=== PATIENT | male | born 1960 | race Caucasian/White ===

== ENCOUNTER 2016-08-21 11:13 | Emergency (ER) | payer OTHER ==
[~2016-08-21] VITALS: Ht 175.3 cm; Wt 95.3 kg
[~2016-08-21 11:13] MED LIST: HYDR-548 PO; NEXIUM PO; SUMA100T PO
--- NOTE | 2016-08-21 11:15 | NUR ---
PT AMBULATORY TO ER BED 09. C/O SEVERE HAEADACHE THAT STARTED THIS MORNING AT 0530. ALSO C/O NAUSEA AND VOMITING. HYPERTENSIVE [employer]. DENEIS HYPERTENSION. GOWNED AND PLACED ON MONITOR. AWAITING MD CHEN.
--- NOTE | 2016-08-21 11:26 | NUR ---
DR CANNON AT BEDSIDE FOR EVAL.
[2016-08-21] MEDS ORDERED: IV NS 0.9% 500 ML BAG IV ONE (11:30)
[2016-08-21] MEDS ORDERED: ONDANSETRON HCL/PF 4 MG/2 ML VIAL IVP ONE (11:30)
[2016-08-21] MEDS ORDERED: HYDROMORPHONE INJ 2 MG/ML DISP.SYRIN IV ONE (11:30)
[2016-08-21] MEDS ORDERED: IV NS 0.9% 500 ML IV ONE (11:36)
[2016-08-21] MEDS ORDERED: HYDROMORPHONE 1 MG/1 ML DISP.SYRIN ONE ×2 (11:36→12:41)
[2016-08-21] MEDS ORDERED: ONDANSETRON HCL/PF 4 MG/2 ML VIAL ONE (11:36)
[2016-08-21] MEDS ORDERED: IV SET PRIMARY 1 EA INFUS.SET MC ONE (11:36)
--- NOTE | 2016-08-21 11:36 | NUR ---
IV LINE STARTED BLOOD DRAWN AND SENT TO LAB.
[2016-08-21 11:41] LABS: BASOPHILS # (AUTO) 0.3 /CMM (0.0-0.2); BASOPHILS % (AUTO) 2.4 % (0.0-2.0); EOSINOPHILS % (AUTO) 0.4 % (0.0-6.0); HEMATOCRIT 53 % (39-51); HEMOGLOBIN 18.4 g/dL (13.5-17.5); LYMPHOCYTES # (AUTO) 1.3 /CMM (0.8-4.8); MEAN CORPUSCULAR HEMOGLOBIN 30 PG (26.0-33.0); MEAN CORPUSCULAR HGB CONC 35 g/dl (31.0-36.0); MEAN CORPUSCULAR VOLUME 88 fL (80-96); MONOCYTES # (AUTO) 0.4 /CMM (0.1-1.30); MONOCYTES % (AUTO) 3.2 % (2.0-12.0); NEUTROPHILS # (AUTO) 9.5 /CMM (1.8-8.9); PLATELET COUNT (AUTO) 330 /CMM (150-450); RDW COEFFICIENT OF VARIATION 13.2 (11.5-15.0); RED BLOOD CELL COUNT(AUTO) 6.09 MIL/uL (4.5-6.0); WHITE BLOOD COUNT (AUTO) 11.5 K/uL (4.3-11.0)
[2016-08-21 11:56] LABS: CALCIUM, SERUM 9.4 mg/dL (8.5-10.1); CARBON DIOXIDE 30 mmol/L (21-32); CHLORIDE 103 mmol/L (98-107); GFR 77 mL/min (>60); GLUCOSE 139 mg/dL (74-106); POTASSIUM 4.5 mmol/L (3.5-5.1); SODIUM SERUM 140 mmol/L (136-145); UREA NITROGEN, BLOOD 11 mg/dL (7-18)
[2016-08-21 11:58] LABS: INR 1.06 (0.87-1.13)
[2016-08-21 12:04] LABS: TROPONIN I < 0.017 ng/mL (0.00-0.056)
--- NOTE | 2016-08-21 12:04 | NUR ---
PT TO RADIOLOGY FOR HEAD CTA AND HEAD CT SCAN VIA [facility].
[2016-08-21] MEDS ORDERED: CT SWABBABLE VALVE TRANS SET 1 EA INFUS.SET MC ONE (12:29)
[2016-08-21] MEDS ORDERED: IV NS 0.9% 250 ML IV ONE (12:29)
[2016-08-21] MEDS ORDERED: IOHEXOL-350 100 ML VIAL IV ONE (12:29)
[2016-08-21 12:39] LABS: BAND % (MANUAL) 1 % (0.0-5.0); LYMPHOCYTES % (MANUAL) 7 % (16-48); MONOCYTES % (MANUAL) 3 % (0-11.0); NEUTROPHILS % (MANUAL) 89 (42-76); PLATELET ESTIMATE ADEQUATE
[2016-08-21] MEDS ORDERED: IV NS 0.9% 1,000 ML IV PRN (12:57)
[2016-08-21] MEDS ORDERED: HYDROMORPHONE 1 MG/1 ML DISP.SYRIN IV ONE (13:00)
[2016-08-21] MEDS ORDERED: Z GUARD REMEDY 2 OZ OINT TP PRN (13:00)
[2016-08-21] MEDS ORDERED: ACETAMINOPHEN 325 MG TABLET PO PRN (13:00)
[2016-08-21] MEDS ORDERED: MAGNESIUM HYDROXIDE 30 ML UDC PO PRN (13:00)
[2016-08-21] MEDS ORDERED: MAG HYDROX/AL HYDROX/SIMETH 30 ML UDC PO PRN (13:00)
[2016-08-21] MEDS ORDERED: HYDROCODONE/APAP 5/325MG 1 EACH TABLET PO PRN (13:00)
[2016-08-21] MEDS ORDERED: ZOLPIDEM TARTRATE 5 MG TABLET PO PRN (13:00)
[2016-08-21] MEDS ORDERED: ENOXAPARIN SODIUM 40 MG/0.4 ML DISP.SYRIN SQ SCH (13:00)
[2016-08-21] MEDS ORDERED: ONDANSETRON HCL/PF 4 MG/2 ML VIAL IVP PRN (13:00)
[2016-08-21] MEDS ORDERED: hydrALAZINE HCL 25 MG TABLET PO PRN (13:00)
[2016-08-21 13:18] VITALS: BP 160/99
--- NOTE | 2016-08-21 13:18 | NUR ---
Patient discharged to home in stable condition. Written and verbal after care instructions given. Patient verbalizes understanding of instruction.IV removed. Catheter intact and site benign. Pressure and 4x4 applied to site. No bleeding noted.
[2016-08-22] MEDS ORDERED: PANTOPRAZOLE 40 MG TABLET.DR PO SCH (07:30)
== END 2016-08-21 13:19 | disposition home or self-care (01) ==
LOC: ER 11:15
DX: R51 Headache (principal); R79.1 Abnormal coagulation profile; R79.89 Other specified abnormal findings of blood chemistry
CPT/HCPCS: 36415; 70450-TC; 70496-TC; 80048-TC; 84484-TC; 85025-TC; 85730-TC; A4606; J1170; J2405; J7040; J7050; Q9967; Z7610

== ENCOUNTER 2017-09-30 08:18 | Emergency (ER) | payer OTHER ==
[~2017-09-30] VITALS: Ht 170.2 cm; Wt 102.1 kg
[2017-09-30] MEDS ORDERED: METOCLOPRAMIDE HCL 10 MG/2 ML VIAL ONE (08:57)
[2017-09-30] MEDS ORDERED: KETOROLAC TROMETHAMINE 15 MG/ML VIAL ONE (08:57)
[2017-09-30] MEDS ORDERED: diphenhydrAMINE HCL 50 MG/ML VIAL ONE (08:57)
[2017-09-30] MEDS ORDERED: METOCLOPRAMIDE HCL 10 MG/2 ML VIAL IV ONE (09:00)
[2017-09-30] MEDS ORDERED: IV NS 0.9% 1,000 ML BAG IV ONE (09:00)
[2017-09-30] MEDS ORDERED: diphenhydrAMINE HCL 50 MG/ML VIAL IV ONE (09:00)
[2017-09-30] MEDS ORDERED: KETOROLAC TROMETHAMINE INJ 30 MG/ML VIAL IV ONE (09:00)
--- NOTE | 2017-09-30 09:04 | NUR ---
Line started on l AC g 20, pt tolerated well
--- NOTE | 2017-09-30 09:04 | NUR ---
pt medicated as ordered
[2017-09-30] MEDS ORDERED: MORPHINE SULFATE INJ 4 MG/ML DISP.SYRIN ONE (09:24)
[2017-09-30] MEDS ORDERED: LORAZEPAM INJ 2 MG/ML VIAL ONE (09:25)
[2017-09-30] MEDS ORDERED: MORPHINE SULFATE INJ 10 MG/ML DISP.SYRIN IV ONE (09:30)
[2017-09-30] MEDS ORDERED: LORAZEPAM INJ 2 MG/ML VIAL IV ONE (09:30)
--- NOTE | 2017-09-30 09:40 | NUR ---
PT MEDICATED ORDERED
--- NOTE | 2017-09-30 11:22 | NUR ---
IV removed. Catheter intact and site benign. Pressure and 4x4 applied to site. No bleeding noted.
[2017-09-30 11:23] VITALS: BP 185/114
--- NOTE | 2017-09-30 11:23 | NUR ---
PT. VERBALIZED UNDERSTANDING OF AFTERCARE INSTRUCTIONS.Patient discharged to home in stable condition. Written and verbal after care instructions given. Patient verbalizes understanding of instruction.
== END 2017-09-30 11:24 | disposition home or self-care (01) ==
LOC: ER 08:20
DX: G43.809 Other migraine, not intractable, without status migrainosus (principal); I16.0 Hypertensive urgency; M13.869 Other specified arthritis, unspecified knee; Z98.890 Other specified postprocedural states
CPT/HCPCS: 70450-TC; A4606; J1200; J1885; J2060; J2270; J2765; J7030; Z7610

== ENCOUNTER 2018-12-02 04:51 | Emergency (ER) | payer MEDICARE, OTHER ==
[~2018-12-02] VITALS: Ht 175.3 cm; Wt 99.8 kg
[~2018-12-02 04:51] MED LIST changes: +HYDR-4354 PO; -HYDR-548 PO
--- NOTE | 2018-12-02 05:12 | NUR ---
BIBSELF FROM HOME. TO ER BED 11. AAOX4. NO RESP DISTRESS NOTED. AMBULATORY. C/O HEADACHE 10/10 X 12 HOURS AGO. PT REPORTS PAIN 10/10 SHARP THROBBING. PT REPORTS TAKING IMITREX 6 HOURS AGO. PT DENIES HAVING DX OF MIGRAINE. MD AT BEDSIDE. AWAITING ORDERS
--- NOTE | 2018-12-02 05:14 | NUR ---
NO NEURO DEFICIT NOTED.
[2018-12-02] MEDS ORDERED: KETOROLAC TROMETHAMINE 15 MG/ML VIAL ONE (05:17)
[2018-12-02] MEDS ORDERED: diphenhydrAMINE HCL 50 MG/ML VIAL ONE (05:17)
[2018-12-02] MEDS ORDERED: METOCLOPRAMIDE HCL 10 MG/2 ML VIAL ONE (05:18)
[2018-12-02] MEDS ORDERED: METOCLOPRAMIDE HCL 10 MG/2 ML VIAL IV ONE (05:30)
[2018-12-02] MEDS ORDERED: diphenhydrAMINE HCL 50 MG/ML VIAL IV ONE (05:30)
[2018-12-02] MEDS ORDERED: KETOROLAC TROMETHAMINE INJ 30 MG/ML VIAL IV ONE (05:30)
--- NOTE | 2018-12-02 06:07 | NUR ---
PT VERBALIZED RELIEF FROM HEADACHE. PT WAS SLEEPING EASILY ARROUSABLE.
--- NOTE | 2018-12-02 06:31 | NUR ---
IV removed. Catheter intact and site benign. Pressure and 4x4 applied to site. No bleeding noted.Patient discharged to home in stable condition. Written and verbal after care instructions given. Patient verbalizes understanding of instruction. Pt ambulatory with a steady gait
[2018-12-02 06:32] VITALS: BP 169/89
== END 2018-12-02 06:39 | disposition home or self-care (01) ==
LOC: ER 04:54
DX: G43.909 Migraine, unspecified, not intractable, without status migrainosus (principal); M17.10 Unilateral primary osteoarthritis, unspecified knee; Z98.890 Other specified postprocedural states; Z79.899 Other long term (current) drug therapy
CPT/HCPCS: 96374; 96375; 99283; J1200; J1885; J2765

== ENCOUNTER 2019-01-09 11:06 | Emergency (ER) | payer MEDICARE, OTHER ==
[~2019-01-09] VITALS: Ht 172.7 cm; Wt 98.4 kg
--- NOTE | 2019-01-09 11:11 | NUR ---
CAME IN FOR SEVERE HEADACHE x 3 DAYS "I FEEL LIKE MY HEAD IS GOING TO SPLIT". TO ER BED 2, HOOKED TO MONITOR, AWAITING MD CHEN.
--- NOTE | 2019-01-09 11:12 | NUR ---
DR LYONS AT BEDSIDE
[2019-01-09] MEDS ORDERED: KETOROLAC TROMETHAMINE INJ 30 MG/ML VIAL ONE (11:34)
[2019-01-09] MEDS ORDERED: METOCLOPRAMIDE HCL 10 MG TABLET ONE (11:34)
[2019-01-09] MEDS ORDERED: diphenhydrAMINE HCL 50 MG/ML VIAL ONE (11:34)
[2019-01-09 11:54] VITALS: BP 157/94
--- NOTE | 2019-01-09 11:54 | NUR ---
Patient discharged to home in stable condition. Written and verbal after care instructions given. Patient verbalizes understanding of instruction.
[2019-01-09] MEDS ORDERED: diphenhydrAMINE HCL 50 MG/ML VIAL IM ONE (12:00)
[2019-01-09] MEDS ORDERED: KETOROLAC TROMETHAMINE INJ 30 MG/ML VIAL IM ONE (12:00)
[2019-01-09] MEDS ORDERED: METOCLOPRAMIDE HCL 10 MG TABLET PO ONE (12:00)
== END 2019-01-09 11:54 | disposition home or self-care (01) ==
LOC: ER 11:10
DX: G43.909 Migraine, unspecified, not intractable, without status migrainosus (principal); Z98.890 Other specified postprocedural states
CPT/HCPCS: 96372 ×2; 99283; J1200; J1885; J8597